=== PATIENT | male | born 1950 | race Caucasian/White ===

== ENCOUNTER → 2023-08-28 07:42 | Outpatient (REF) | payer BC, SELFPAY | LOC: RCS 07:42 | PROVIDERS: ATTENDING PHYSICIAN Internal Medicine Cardiovascular Disease; FAMILY PHYSICIAN Nurse Practitioner Family | DX: J45.20 Mild intermittent asthma, uncomplicated (principal); R07.9 Chest pain, unspecified | CPT/HCPCS: 93306 ==

== ENCOUNTER → 2024-07-02 07:56 | Outpatient (REF) | payer BC, SELFPAY | LOC: HWRCS 07:56 | PROVIDERS: ATTENDING PHYSICIAN Internal Medicine Cardiovascular Disease; FAMILY PHYSICIAN Nurse Practitioner Family | DX: R06.09 Other forms of dyspnea (principal); I45.4 Nonspecific intraventricular block | CPT/HCPCS: 78452; 93017; A9500; J2785 ==